=== PATIENT | female | born 2005 | race Caucasian/White ===

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

== ENCOUNTER 2025-01-30 18:06 | Day surgery (SDC) | payer OTHER, SELFPAY ==
[2025-01-30] VITALS (14 sets, daily range): BP systolic 97–140; BP diastolic 50–85; PULSE 64–135; RESP 16–20; TEMP 36.8–37.2; O2SAT 97–100; BMI 20.9
--- NOTE | 2025-01-30 19:08 | HMH.EDGENADL ---
Discharge Plan Disposition Patient Disposition: Home, Self-Care Clinical Impressions Clinical Impression: Ectopic Discharge ED Provider: Ivan Johnston Adult HPI General Chief complaint: Urogenital-Female Stated complaint: vaginal bleeding Time Seen by Provider: 01/30/25 19:08 Mode of Arrival: Ambulatory Source of Information: Patient and Significant Other Description of Symptoms (Recalled from ER Triage Doc. by RN): Patient presents ambulatory to triage. States she has been spotting for three weeks. States this morning in her sleep she started bleeding heavily. States she is unsure if this is her cycle, but her bleeding is heavier than normal. Endorses a chance of . Denies any other vaginal or urinary symptoms. Patient endorses passing large blood clots. Patient states the she has bled through multiple pads today. History of Present Illness HPI narrative: Patient presents for evaluation of vaginal bleeding, acute in onset starting today, constant, stable in course, with associated suprapubic cramping abdominal pain. No previous therapies. Patient has been on the toilet, she describes, for most of the day and hence has been unable to definitively measure amount of bleeding. Has not had similar symptoms before, last menstrual period in November. No chest pain shortness of breath or trauma. No dysuria or urinary frequency Please note that above description of symptoms, in this electronic medical record under categorization of recalled from ER triage doctor by RN are reflective of an initial nursing assessment, however, is not reflective of my full history and physical exam that was personally taken and clarified. Consequentially, this preceding description of symptoms, which may include the patient's categorized chief complaint in the EMR, do not reflect my personal clinical impression, and the ultimate description of history of present illness and patient stated complaints should be deferred to this section of the note. Unless stated otherwise or congruent with this section of the note, additional signs, symptoms, or incongruence should be interpreted as inaccurate with my clinical impression. Related Data Home Medications ?Medication ?Instructions ?Recorded ?Confirmed dicyclomine 20 mg tablet 20 mg PO QID 07/30/23 01/30/25 Previous Rx's ?Medication ?Instructions ?Recorded sertraline 50 mg tablet (Zoloft) 50 mg PO DAILY #30 tabs 06/23/24 Allergies Allergy/AdvReac Type Severity Reaction Status Date / Time No Known Allergies Allergy Verified 06/23/24 09:57 [facility] Disclaimer: The information contained in this section may have been updated after the patient was seen, as this information can be updated by other users. Medical History (Updated 01/30/25 @ 22:43 by Clementina Colunga RN) Generalized anxiety disorder Breast lump Dyspareunia Family history of breast cancer in first degree relative Normal endoscopy Surgical History No history of previous surgery Family History Other Alcoholism Asthma Cancer Diabetes Hyperlipidemia Hypertension Substance abuse Thyroid disorder Social History (Updated 06/23/24 @ 09:22 by Celi Cabrera APRN) Smoking Status: Current every day smoker tobacco type: e-cigarettes second hand exposure: No alcohol intake: never counseling given: No substance use type: marijuana counseling given: No (states that she does this daily; when her stomach acks up) current occupational status: employed Travel in the last 8 weeks: None adopted: No caregiver/support person: No foster care: No household members: significant other housing: house lives independently: Yes marital status: single number of children: 0 education level: high school Hx Recent Travel: No sexually active: Yes caffeine: Yes physical activity: none working smoke detector in home: Yes fire extinguisher in home: No carbon monox detector in home: No firearms in home: No do you feel safe at home: Yes victim of physical abuse: No victim of emotional abuse: No victim of sexual abuse: No would you like helpful sources: No Have you lived/traveled outside [place] in past 30 days?: No Contact w/someone who lives/traveled outside US past 30 days?: No Exposure to someone with infectious disease in past 14 days?: No Do you have a fever (greater than 100.4 F or 38 C)?: No Have you tested positive for COVID-19: No Exposed to someone with COVID-19 in past 14 days?: No Do you have a sore throat?: No Do you have a cough?: No Do you have any weakness?: No Do you have any diarrhea?: No Are you experiencing any unusual bleeding?: No Do you have any muscle aches/pain?: No Do you have any abdominal pain?: No Are you experiencing loss of taste or smell?: No Other Medical History Have you received the Pneumonia Vaccine: No ROS Obtained: Yes other As per HPI Physical Exam General General appearance: alert and in no apparent distress Head Head exam: atraumatic and normocephalic Eye Eye exam: Present normal appearance Neck Neck exam: Present normal inspection Chest Chest inspection: Present normal inspection and symmetric chest wall rise Respiratory Respiratory exam: Present normal lung sounds bilaterally; Absent respiratory distress Cardiovascular Cardiovascular exam: Present regular rate and normal rhythm Abdominal Exam Abdominal exam: Present soft Abdominal tenderness: Present suprapubic and mild Neurological Exam Neurological exam: Present alert and oriented X3 Psychiatric Psychiatric exam: Present normal affect and normal mood Skin Skin exam: Present warm and dry Medical Decision Making Medical Records Medical records reviewed: Yes I reviewed the patient's medical records. Screening: Per USPSTF and CDC recommendations, given the prevalence of disease in our region, it is our hospital?s policy to screen for HIV and viral Hepatitis for all patients aged 18 and over and those with ongoing risk factors. Sean Inquiry Pt receiving controlled substance: No Vital Signs: 01/30/25 18:14 01/30/25 19:02 01/30/25 19:07 Temperature 98.3 F Temperature Source Oral Pulse Rate 64 89 Pulse Rate [Radial] 112 H Respiratory Rate 18 18 Blood Pressure 98/76 L 100/62 L Blood Pressure [R Arm] 140/85 Blood Pressure Mean Blood Pressure Mean [R Arm] 103 Blood Pressure Source [R Arm] Automatic Cuff Blood Pressure Position 02 Sat by Pulse Oximetry 100 100 98 Oxygen Delivery Method Room Air Room Air Room Air 01/30/25 19:30 01/30/25 20:01 01/30/25 21:05 Temperature Temperature Source Pulse Rate 80 100 H Pulse Rate [Radial] Respiratory Rate 19 19 Blood Pressure 97/63 L 106/71 L 106/71 L Blood Pressure [R Arm] Blood Pressure Mean 77 Blood Pressure Mean [R Arm] Blood Pressure Source [R Arm] Blood Pressure Position 02 Sat by Pulse Oximetry 100 100 97 Oxygen Delivery Method Room Air 01/30/25 21:58 Temperature 98.9 F Temperature Source Oral Pulse Rate 100 H Pulse Rate [Radial] Respiratory Rate 16 Blood Pressure 110/72 Blood Pressure [R Arm] Blood Pressure Mean Blood Pressure Mean [R Arm] Blood Pressure Source [R Arm] Blood Pressure Position Right Lateral 02 Sat by Pulse Oximetry Oxygen Delivery Method Room Air Lab Data Lab Results 01/30/25 19:15: WBC 18.0 H, RBC 3.50 L, Hgb 10.6 L, Hct 32.2 L, MCV 92.0, MCH 30.3, MCHC 32.9, RDW 12.0, Plt Count 235, MPV 10.9 H, Neut % (Auto) 80.5 H, Lymph % (Auto) 11.1, [place] % (Auto) 7.0, Eos % (Auto) 0.1, Baso % (Auto) 0.7, Neut # (Auto) 14.5 H, Lymph # (Auto) 2.0, [place] # (Auto) 1.3 H, Eos # (Auto) 0.0, Baso # (Auto) 0.1, Total Counted 100, Neutrophils % (Manual) 84 H, Lymphocytes % (Manual) 9 L, Monocytes % (Manual) 7, Platelet Estimate Normal, RBC Morphology Normal, Sodium 135 L, Potassium 3.7, Chloride 103, Carbon Dioxide 24, Anion Gap 11.7, BUN 10, Creatinine 0.60, Estimated Creat Clear 139, Estimated GFR 127, Est GFR ( Amer) 154, Glucose 124 H, Calcium 9.0, Total Bilirubin 0.8, AST 22, ALT 19, Alkaline Phosphatase 53, Total Protein 7.1, Albumin 4.6, Globulin 2.5, Albumin/Globulin Ratio 1.8, Serum HCG, Qual Positive, HCG, Quant 3013 H, Blood Type B Positive 01/30/25 20:13: Urine Color Red, Urine Appearance Cloudy, Urine pH 5.0, Ur Specific [employer] 1.025, Urine Protein 2+ A, Urine Glucose (UA) Negative, Urine Ketones Small, Urine Blood 3+ A, Urine Nitrate Negative, Urine Bilirubin 1+ A, Urine Urobilinogen 0.2, Ur Leukocyte Esterase Negative, Urine RBC Tntc, Urine WBC None, Ur Squamous Epith Cells Occasional, Urine Bacteria None 01/30/25 19:15 01/30/25 19:15 Orders (Tests/Meds): ED MEDICATIONS Discontinued Medications Generic Name Dose Route Start Last Admin Trade Name Freq PRN Reason Stop Dose Admin Meperidine HCl 12.5 mg 01/30/25 22:30 Meperidine 25mg/Ml 1ml Syringe IV 01/31/25 00:31 ONCE PRN Shivering Morphine Sulfate 1 mg 01/30/25 22:30 Morphine 2mg/Ml Syringe IV 01/31/25 00:31 Q6MINP PRN Mild Pain (1-3) Naloxone HCl 0.4 mg 01/30/25 22:30 Naloxone 0.4mg/Ml Vial IV 01/31/25 00:31 Q3MINP PRN Decreased Respirations ORDERS Category Date Time Status ABO/RH Type Stat [facility] 01/30/25 19:15 Completed CBC w/Auto Diff [Complete Blood Count Auto Diff] Stat Lab 01/30/25 19:15 Completed CMP [Comprehensive Metabolic Panel] Stat Lab 01/30/25 19:15 Completed HCG Qualitative, Serum Stat Lab 01/30/25 19:15 Completed HCG,Quantitative Stat Lab 01/30/25 19:15 Completed Urinalysis and Microscopic Stat Lab 01/30/25 20:13 Completed US OB transvaginal Stat Ultrasound 01/30/25 20:04 Completed Medical Decision Narrative: Patient with history and exam per above presenting for evaluation of suprapubic abdominal pain, vaginal bleeding Diagnoses considered include ectopic , ruptured cyst, miscarriage, among others ED workup and treatment included: ED MEDICATIONS Discontinued Medications Generic Name Dose Route Start Last Admin Trade Name Freq PRN Reason Stop Dose Admin Meperidine HCl 12.5 mg 01/30/25 22:30 Meperidine 25mg/Ml 1ml Syringe IV 01/31/25 00:31 ONCE PRN Shivering Morphine Sulfate 1 mg 01/30/25 22:30 Morphine 2mg/Ml Syringe IV 01/31/25 00:31 Q6MINP PRN Mild Pain (1-3) Naloxone HCl 0.4 mg 01/30/25 22:30 Naloxone 0.4mg/Ml Vial IV 01/31/25 00:31 Q3MINP PRN Decreased Respirations ORDERS Category Date Time Status ABO/RH Type Stat [facility] 01/30/25 19:15 Completed CBC w/Auto Diff [Complete Blood Count Auto Diff] Stat Lab 01/30/25 19:15 Completed CMP [Comprehensive Metabolic Panel] Stat Lab 01/30/25 19:15 Completed HCG Qualitative, Serum Stat Lab 01/30/25 19:15 Completed HCG,Quantitative Stat Lab 01/30/25 19:15 Completed Urinalysis and Microscopic Stat Lab 01/30/25 20:13 Completed US OB transvaginal Stat Ultrasound 01/30/25 20:04 Completed Labs were independently interpreted by me, significant for elevated quantitative hCG, leukocytosis, hemoglobin 10.6 Imaging was independently visualized and interpreted by me, significant for no definitive ectopic , however no visualized IUP Please refer to radiology report for full details. Case was discussed with [employer] who evaluated the patient and will take patient to operating room for D&C. Patient remained hemodynamically stable while in the emergency department. Critical Care Critical Care Time Critical Care Time: No
[2025-01-30 19:42] LABS: Basophils # 0.1 K/mm3 (0-0.2); Basophils % 0.7 % (0.1-2.0); Eosinophils % 0.1 % (0.1-12.0); Hematocrit 32.2 % (37.0-47.0); Hemoglobin 10.6 g/dL (12.2-16.2); Lymphocytes % 11.1 % (10-50); Mean Corpuscular HGB Conc 32.9 g/dL (31.8-35.4); Mean Corpuscular Hemoglobin 30.3 pg (27.0-31.2); Mean Platelet Volume 10.9 fl (7.4-10.4); Monocytes # 1.3 K/mm3 (0.1-1.0); Neutrophils # 14.5 K/mm3 (1.8-7.8); Neutrophils % 80.5 % (37.0-80.0); Platelet Count 235 K/mm3 (142-424)
[2025-01-30 19:43] LABS: MANUAL DIFFERENTIAL MANUAL DIFFERENTIAL (MANUAL DIFF)
[2025-01-30 19:52] LABS: Albumin Level 4.6 g/dl (3.5-5.0); Chloride 103 mmol/L (98-107); Potassium 3.7 mmoL/L (3.5-5.1); Sodium 135 mmol/L (136-145)
[2025-01-30 19:54] LABS: Blood Urea Nitrogen 10 mg/dl (7-17); Creatinine Clearance Estimated 139 mL/min (50-200); Estimated Glomerular Filt Rate 127 ml/min (>60); GFR (African American) 154 ML/MIN (>60)
[2025-01-30 19:55] LABS: Alanine Aminotransferase 19 U/L (12-78); Albumin/Globulin Ratio 1.8 (1.1-1.8); Alkaline Phosphatase 53 U/L (38-126); Anion Gap 11.7 mEq/L (5-15); Aspartate Amino Transferase 22 U/L (14-36); Bilirubin,Total 0.8 mg/dl (0.2-1.3); Carbon Dioxide 24 mmol/L (22.0-30.0); Globulin 2.5 g/dL (1.3-3.2); Glucose 124 mg/dl (74-100); Total Protein,Serum 7.1 g/dl (6.3-8.2)
[2025-01-30 19:57] LABS: HCG Qualitative, Serum Positive (Negative)
--- NOTE | 2025-01-30 20:04 | US_ITS ---
PROCEDURE INFORMATION: Exam: US , Transvaginal Exam date and time: 01/30/2025 8:11 PM Age: 19 years old Clinical indication: Lmp or gestational age (in weeks): 12/08/2024; Other: Vaginal bleeding, , leukocytosis TECHNIQUE: Imaging protocol: Real-time transvaginal obstetrical ultrasound of the maternal pelvis and a first trimester with image documentation. Transvaginal imaging was used for better evaluation of the fetus, adnexa, and/or cervix. Real-time duplex ultrasound scan of the arterial flow of the ovaries with B-mode, color Doppler flow and spectral waveform analysis. COMPARISON: No relevant prior studies available. FINDINGS: GESTATION: Gestation: No intrauterine gestational sac. heart rate: N/A. MATERNAL: Uterus: Endometrium: 1.4 cm in thickness. Cervix: Closed cervix. Right ovary: No mass. Normal flow. No adnexal mass. Left ovary: Probable 1.7 x 1.9 x 1.9 cm corpus luteal cyst. Normal flow. No adnexal mass. Intraperitoneal space: Trace free fluid within pelvis. IMPRESSION: No intrauterine gestation. DDX: Early IUP, missed , ectopic .
[2025-01-30 20:10] LABS: Lymphocytes % 9 % (10-50); Monocytes % 7 % (2-9); Neutrophils % 84 % (42-76); Platelet Estimate Normal; RBC Morphology Normal; Total Cells Counted 100
[2025-01-30 20:17] LABS: Microscopic, Urine URINE MICROSCOPIC (MICROSCOPIC)
[2025-01-30 20:21] LABS: Appearance,Urine Cloudy (Clear); Color,Urine Red (Yellow); Protein,Urine 2+ (Negative); Specific Gravity, Urine 1.025 (1.005-1.030)
[2025-01-30 20:22] LABS: Bilirubin,Urine 1+ (Negative); Blood, Urine 3+ (Negative); Glucose,Urine (UA) Negative (Negative); Ketones,Urine Small (Negative); Leukocyte Esterase,Urine Negative (Negative); Nitrate,Urine Negative (Negative); Urobilinogen,Urine 0.2 EU/dl (0.2)
[2025-01-30 20:33] LABS: RBC,Urine TNTC #/hpf (0-3); Squamous Epithelial Cell,Urine Occasional #/hpf (0-5)
[2025-01-30 20:41] LABS: HCG,Quantitative 3013 mIU/ml (0-5.42)
--- NOTE | 2025-01-30 21:20 | PC.NURSE ---
Erin Ramachandran just showed up in the ER to speak with this pt about what was going on before she goes to surgery
--- NOTE | 2025-01-30 21:59 | P.PNANES_ITS ---
[facility] Disclaimer: The information contained in this section may have been updated after the patient was seen, as this information can be updated by other users. Medical History (Updated 06/23/24 @ 09:59 by Celi Cabrera APRN) Generalized anxiety disorder Breast lump Dyspareunia Family history of breast cancer in first degree relative Normal endoscopy Surgical History No history of previous surgery Family History Other Alcoholism Asthma Cancer Diabetes Hyperlipidemia Hypertension Substance abuse Thyroid disorder Social History (Updated 06/23/24 @ 09:22 by Celi Cabrera APRN) Smoking Status: Current every day smoker tobacco type: e-cigarettes second hand exposure: No alcohol intake: never counseling given: No substance use type: marijuana counseling given: No (states that she does this daily; when her stomach acks up) current occupational status: employed Travel in the last 8 weeks: None adopted: No caregiver/support person: No foster care: No household members: significant other housing: house lives independently: Yes marital status: single number of children: 0 education level: high school Hx Recent Travel: No sexually active: Yes caffeine: Yes physical activity: none working smoke detector in home: Yes fire extinguisher in home: No carbon monox detector in home: No firearms in home: No do you feel safe at home: Yes victim of physical abuse: No victim of emotional abuse: No victim of sexual abuse: No would you like helpful sources: No Have you lived/traveled outside [place] in past 30 days?: No Contact w/someone who lives/traveled outside [place] past 30 days?: No Exposure to someone with infectious disease in past 14 days?: No Do you have a fever (greater than 100.4 F or 38 C)?: No Have you tested positive for COVID-19: No Exposed to someone with COVID-19 in past 14 days?: No Do you have a sore throat?: No Do you have a cough?: No Do you have any weakness?: No Do you have any diarrhea?: No Are you experiencing any unusual bleeding?: Yes Do you have any muscle aches/pain?: No Do you have any abdominal pain?: No Are you experiencing loss of taste or smell?: No [facility] Anesthesia Checklist Patient Identification Patient Identification: Arm Band and Verbal (Name & ) Structural Data Admitted From: Emergency Dept Planned Operative Procedure/s: D&C w/Hughes suction Consent for Planned Operative Procedure(s) Verified: Yes Verified Documents: Surgical Consent and History and Physical NPO Status Verified Time NPO: 16:00 Chart Verification Results Verified: CBC, BMP, Chest Xray and HCG (7840) Additional verifications Patient : No (Missed AB) Anesthesia Reactions: No Cardiovascular Assessment Heart Sounds: S1 & S2 Pulse Rhythm: Irregular Peripheral Edema: No Airway Assessment Mallampati Score:: Class II C-Spine Mobility Assessed: Yes (FROM demonstrated) TMJ Mobility Assessed: Yes Dentition: Good Dentition Neurological Assessment Level of Consciousness: Awake, Alert, Appropriate and Follows Commands Hx Seizures: No Numbness or tingling in extremities: No Anesthesia Plan Anesthesia Risk discussed: Yes Anesthesia Plan: Verified ASA Class: II (E) Anesthesia Type: General
--- NOTE | 2025-01-30 22:02 | PC.NURSE ---
patient gone to surgery
--- NOTE | 2025-01-30 22:23 | P.OP_ITS ---
Date of procedure: 01/30/25 Pre-op Diagnosis:: Missed Post-op Diagnosis:: Missed Procedure performed:: Dilation and evacuation with Upson suction Surgeon:: Rogelio Ramachandran MD Infrastructure Consultant(s):: None SORT LINE:: Suzyjaswinder Amador Anesthesia: LMA Estimated blood loss (mL): 100 Clinical Note:: She is a 19-year-old 1 para 0 at approximately 7 weeks gestational age. She came into the ER with heavy bleeding. Ultrasound showed there was still tissue within the uterine cavity. A fetus was not seen. There was a cystic area on her left ovary. To me it looks more like a corpus luteum but we cannot rule out an ectopic . There was just trace fluid in the cul-de-sac. As result of this she was offered dilation and evacuation with Upson suction for retained products of conception. Operative findings:: She had an anteverted somewhat bulky uterus. On evacuation of the uterine contents there was a moderate amount of tissue present. Operative note:: She was taken the operating room where LMA anesthesia was found to be adequate. She is prepped. [employer] fashion lithotomy position. Weighted speculum placed in vagina and the antilipid the cervix was grasped with a tenaculum. Carr dilators used to dilate the cervix to approximately 9 mm. Then using an 9 mm curved Lam suction curette I evacuated the uterine contents. This was followed by gentle curettage. She tolerated procedure well and was taken to recovery room in excellent condition. All sponge, instrument counts were correct. Estimated blood loss was less than 100 cc. Condition: stable Disposition: PACU Specimens:: Retained products of conception Complications:: None
--- NOTE | 2025-01-30 22:32 | EXP.ANES.I ---
[facility] Anesthesia Record Part I Anesthesia Record I Intake, IV Amount: 700 Hydration: Adequate Estimated blood loss (mL): 100 Urine output (mL): 0 Blood Pressure: 114/65 SaO2: 98 Pulse Rate: 135 Airway Patency: Patent Respiratory Rate: 20 Temperature: 98.8 F Patient is:: Drowsy and Stable Stable to PACU at:: 22:32
--- NOTE | 2025-01-31 11:21 | P.PNANES_ITS ---
[facility] Anesthesia Record Part II Anesthesia Record Part II Discharge Time: 22:57 Destination: Surgical Day Care (OP Surgery) PACU nurse assessment reviewed?: Yes Patient Condition:: Good Anesthesia Complications:: None Swallowing reflex intact?: Yes Airway Patency: Patent Cyanosis?: No Blood Pressure: 110/53 SaO2: 100 Respiratory Rate: 16 Pulse Rate: 92 Temperature: 98.8 F Mental Status: Alert & Oriented Pain level:: 0 Nausea and/or vomitting:: None Intake, IV Amount: 700 Hydration: Adequate
[2025-01-31 11:22] VITALS: BP 110/53; PULSE 92; RESP 16; TEMP 37.1; O2SAT 100
--- NOTE | 2025-01-31 21:49 | PC.NURSE ---
Late entry: On 01/30/25 surgery team was paged at [phone]. Suzy returned call at [phone] LASHELL George returned call at [phone] Criss returned call at [phone]
== END 2025-01-30 23:27 | disposition home or self-care (01) ==
LOC: ER 18:42 → SDC 22:02
PROVIDERS: Emergency Provider Emergency Medicine; PCP Nurse Practitioner; Visit Provider Nurse Practitioner Obstetrics & Gynecology
PROC: (CPT 59820; principal; 2025-01-30 22:00)
DX: O02.1 Missed abortion (principal)
CPT/HCPCS: 59820; 76817; 80053; 81001; 84702; 84703; 85007; 85025; 86900; 86901; J1100; J1885; J2250; J2405; J3010

== ENCOUNTER 2025-02-01 13:31 | Outpatient (CLI) | payer OTHER, SELFPAY ==
[2025-02-01 16:44] LABS: HCG,Quantitative 576 mIU/ml (0-5.42)
== END 2025-02-01 23:59 | disposition home or self-care (01) ==
LOC: LAB 13:31
PROVIDERS: PCP Nurse Practitioner; Visit Provider Nurse Practitioner Obstetrics & Gynecology
DX: O02.1 Missed abortion (principal)
CPT/HCPCS: 36415; 84702